=== PATIENT | female | born 1985 | race Caucasian/White ===

== ENCOUNTER 2018-06-01 06:44 | Emergency (ER) | payer OTHER ==
[2018-06-01] MEDS: DEXAMETHASONE 10 MG/ML 1 ML INJ IM (07:26)
== END 2018-06-01 08:09 | disposition home or self-care (01) ==
LOC: FTE 06:44
DX: S10.96XA Insect bite of unspecified part of neck, initial encounter (principal); S40.861A Insect bite (nonvenomous) of right upper arm, initial encounter; S40.862A Insect bite (nonvenomous) of left upper arm, initial encounter; R40.2412 Glasgow coma scale score 13-15, at arrival to emergency department; W57.XXXA Bitten or stung by nonvenomous insect and other nonvenomous arthropods, initial encounter; Y92.34 Swimming pool (public) as the place of occurrence of the external cause; Z79.84 Long term (current) use of oral hypoglycemic drugs
CPT/HCPCS: 96372; 99284-25